=== PATIENT | male | born 1965 | race Caucasian/White ===

== ENCOUNTER 2016-12-15 02:05 | Emergency (ER) | payer MEDICAID ==
--- NOTE | 2016-12-15 02:24 | ED PDOC ---
Arrival/HPI - General Historian: Patient - History of Present Illness Time/Duration: 24 hours Symptom Onset: Sudden Symptom Course: Intermittent, Collicky Quality: Stabbing Severity Level: Moderate Activities at Onset: Rest Context: Home - General Chief Complaint: Back Pain Time Seen by Provider: 12/15/16 02:24 - History of Present Illness Narrative History of Present Illness (Text): 12/15/16 02:37 51yo M with PMHx including DM, HTN here for evaluation of right sided flank pain. Pain described as intermittent, colicky, worse with movement, located in the right side of the abd and radiates to the right back. States that the pain started about 30 hours ago, he has been taking Ibuprofen 800mg with mild relief. Does report some dysuria. No frequency. Also reports some mild nausea which started today. Denies any vomiting. States that he ate a regular meal about 5 hours ago, no change appreciated with abd pain after the meal. Denies F/ C. No CP/SOB. No headaches. Denies similar symptoms in the past. PMHx: DM, HTN, HLD PSHx: Denies Social Hx: Current 1ppd smoker. Denies ETOH use. Denies illicit drugs Allergy: PCN (Kevin Arceo) Past Medical History - Provider Review Nursing Documentation Reviewed: Yes Family/Social History - Physician Review Nursing Documentation Reviewed: Yes Family/Social History: Unknown Family HX Smoking Status: Heavy Smoker > 10 Cigarettes Daily Hx Alcohol Use: No Hx Substance Use: No Allergies/Home Meds Allergies/Adverse Reactions: Allergies penicillamine Allergy (Verified 12/15/16 02:21) ITCHING Penicillins Allergy (Verified 12/15/16 02:21) ITCHING Home Medications: Home Meds Medication Instructions Recorded Confirmed Atorvastatin [Lipitor] 40 mg PO DAILY 12/15/16 12/15/16 Lisinopril/Hydrochlorothiazide 1 each PO DAILY 12/15/16 12/15/16 [Lisinopril-Hctz 10-12.5 mg Tab] Metformin HCl [Glucophage] 500 mg PO BID 12/15/16 12/15/16 Metoprolol Succinate [Toprol XL] 50 mg PO DAILY 12/15/16 12/15/16 Ranitidine HCl [Zantac 300] 300 mg PO BID 12/15/16 12/15/16 Review of Systems - Review of Systems Constitutional: absent: Fatigue, Weight Change, Fevers Eyes: Normal ENT: Normal Respiratory: absent: SOB, Cough Cardiovascular: absent: Chest Pain, Edema, Calf Pain, REYES, Orthopnea Gastrointestinal: Abdominal Pain, Nausea. absent: Constipation, Diarrhea, Vomiting Genitourinary Male: Dysuria. absent: Frequency, Hematuria Musculoskeletal: Back Pain Neurological: absent: Headache, Dizziness Endocrine: absent: Diaphoresis Hemo/Lymphatic: absent: Adenopathy Psychiatric: absent: Anxiety, Depression Physical Exam Vital Signs Reviewed: Yes Temperature: Afebrile Blood Pressure: Hypertensive Pulse: Regular Respiratory Rate: Normal Appearance: Positive for: Non-Toxic, Uncomfortable Pain Distress: Moderate Mental Status: Positive for: Alert and Oriented X 3 - Systems Exam Head: Present: Atraumatic, Normocephalic Extroacular Muscles: Present: EOMI Conjunctiva: Present: Normal Mouth: Present: Moist Mucous Membranes Neck: Present: Normal Range of Motion. No: JVD Respiratory/Chest: Present: Clear to Auscultation, Good Air Exchange. No: Respiratory Distress, Accessory Muscle Use, Wheezes Cardiovascular: Present: Regular Rate and Rhythm, Normal S1, S2. No: Murmurs Abdomen: Present: Tenderness (Right sided abdomen tenderness to palpation). No : Distention, Peritoneal Signs, Rebound, Guarding Back: Present: CVA Tenderness (right sided CVA tenderness) Upper Extremity: Present: Normal Inspection, Normal ROM, NORMAL PULSES. No: Edema Lower Extremity: Present: Normal Inspection, NORMAL PULSES, Normal ROM. No: Edema, CALF TENDERNESS Neurological: Present: GCS=15 Skin: Present: Warm, Dry, Normal Color Psychiatric: Present: Alert, Oriented x 3 Vital Signs Temp Pulse Resp BP Pulse Ox 12/15/16 02:21 98.4 F 66 18 153/80 H 98 Medical Decision Making ED Course and Treatment: In agreement with resident note, which includes further HPI details. Patient was seen and evaluated with resident, came up with plan and treatment together. (Dion Farrell) 12/15/16 02:52 51yo M with Right Flank pain - CBC - CMP - Mg - Phos - UA - IVF - Toradol - Zofran - CT Abd/pelvis - Reassess and dispo 12/15/16 03:30 On reevaluation, pain is improved. Nausea is improved CT - right proximal ureter calculus approx 7cm from right renal pelvis. Size is approx 5mm x 6mm x 4mm stone. Mild right hydronephrosis. Creatinine - 1.6 Mild hyperphosphatemia noted. 5.1. Discussed findings with patient. Patient would like to try conservative medical treatment and requesting discharge. He states that he will follow up with his doctor and Urology as out-patient. Patient instructed to return to the ER with worsening symptoms. Flomax, Cipro and Percocets prescribed. (Kevin Arceo) - Lab Interpretations Lab Results: 12/15/16 02:35 12/15/16 02:35 Lab Results 12/15/16 02:35: Sodium 139, Potassium 4.1, Chloride 104, Carbon Dioxide 25, Anion Gap 14, BUN 17, Creatinine 1.6 H, Est GFR ( Amer) 55, Est GFR (Non- Af Amer) 46, Random Glucose 84, Calcium 9.3, Phosphorus 5.1 H, Magnesium 1.9, Total Bilirubin 0.9, AST 23, ALT 35, Alkaline Phosphatase 77, Total Protein 7.5 , Albumin 4.4, Globulin 3.1, Albumin/Globulin Ratio 1.4 12/15/16 02:35: WBC 10.9, RBC 5.00, Hgb 14.4, Hct 43.5, MCV 87.0, MCH 28.8, MCHC 33.1, RDW 15.0 H, Plt Count 221, MPV 10.4, Gran % 59.8, Lymph % (Auto) 28.0 , Luce % (Auto) 9.8 H, Eos % (Auto) 2.2, Baso % (Auto) 0.2, Gran # 6.51 H, Lymph # 3.1, Luce # 1.1 H, Eos # 0.2, Baso # 0.02 - RAD Interpretation Radiology Orders: 12/15/16 02:34 ABD & PELVIS W/O PO OR IV CONT [CT] Stat - Medication Orders Current Medication Orders: Discontinued Medications Sodium Chloride (Sodium Chloride 0.9%) 1,000 mls @ 999 mls/hr IV .Q1H1M STA Stop: 12/15/16 03:36 Last Admin: 12/15/16 02:52 Dose: 999 mls/hr Ketorolac Tromethamine (Toradol) 30 mg IVP STAT STA Stop: 12/15/16 02:36 Last Admin: 12/15/16 02:51 Dose: 30 mg Ondansetron HCl (Zofran Inj) 4 mg IVP STAT STA Stop: 12/15/16 02:37 Last Admin: 12/15/16 02:52 Dose: 4 mg - PA / LIGHTING DIRECTOR / Resident Statement / has reviewed & agrees with the documentation as recorded. / has examined the patient and agrees with the treatment plan. Disposition/Present on Arrival - Present on Arrival Any Indicators Present on Arrival: No History of DVT/PE: No History of Uncontrolled Diabetes: No Urinary Catheter: No History of Decub. Ulcer: No - Disposition Have Diagnosis and Disposition been Completed?: Yes Disposition Time: 03:57 Patient Plan: Discharge - Disposition Diagnosis: Urolithiasis Disposition: HOME/ ROUTINE Condition: STABLE Discharge Instructions (ExitCare): Kidney Stones (ED) Additional Instructions: 1. Follow up with your Primary Care Physician within 1-2 days 2. Follow up with Urology, call for appointment 3. Use pain meds as prescribed as needed sparingly 4. Take Tamsulosin as prescribed 5. Use urine strainer 6. Return to the ER with any worsening or concerning symptoms Prescriptions: Ciprofloxacin [Cipro] 250 mg PO BID #10 tab oxyCODONE/Acetaminophen [Percocet 5/325 mg Tab] 1 ea PO QID PRN #8 tab PRN Reason: Pain, Moderate (4-7) Tamsulosin [Flomax] 0.4 mg PO DAILY #7 cap Referrals: Joel Quiñones MD [Staff Provider] - Follow up with primary Forms: WORK NOTE
[2016-12-15 02:26] VITALS: RESP 18; TEMP 98.4
[2016-12-15 02:52] LABS: BASO # 0.02 K/mm3 (0.0-2.0); BASO % 0.2 % (0.0-3.0); EOS # 0.2 (0.0-0.7); EOS % 2.2 % (1.5-5.0); GRAN # 6.51 (1.4-6.5); GRAN % 59.8 % (50.0-68.0); HEMATOCRIT 43.5 % (42.0-52.0); LYMPH # 3.1 (1.2-3.4); MEAN CORPUSCULAR HEMOGLOBIN 28.8 pg (25.0-35.0); MEAN CORPUSCULAR HGB CONC 33.1 g/dl (31.0-37.0); MEAN PLATELET VOLUME 10.4 fl (7.0-11.0); MONO # 1.1 (0.1-0.6); MONO % 9.8 % (1.0-6.0); WHITE BLOOD COUNT 10.9 10^3/ul (4.5-11.0)
[2016-12-15] MEDS: Sodium Chloride 0.9% 1,000 ML IV STA (02:52)
[2016-12-15 02:57] LABS: ALB/GLOB RATIO 1.4 (1.1-1.8); BILIRUBIN,TOTAL 0.9 mg/dL (0.2-1.3); CALCIUM 9.3 mg/dL (8.4-10.5); MAGNESIUM 1.9 mg/dL (1.7-2.2); PHOSPHOROUS 5.1 mg/dL (2.5-4.5); POTASSIUM 4.1 mmol/L (3.6-5.0); TOTAL PROTEIN 7.5 g/dL (5.8-8.3)
--- NOTE | 2016-12-15 03:45 | CT ---
EXAM: CT Abdomen and Pelvis Without Intravenous Contrast CLINICAL HISTORY: 51 years old, male; Pain; Abdominal pain; Flank; Right; Additional info: Right flank pain TECHNIQUE: Axial computed tomography images of the abdomen and pelvis without intravenous contrast. All CT scans at this facility use one or more dose reduction techniques, viz.: automated exposure control; ma/kV adjustment per patient size (including targeted exams where dose is matched to indication; i.e. head); or iterative reconstruction technique. Coronal and sagittal reformatted images were created and reviewed. COMPARISON: No relevant prior studies available. FINDINGS: Lower thorax: Minimal atelectasis/scarring. ABDOMEN: Liver: Fatty infiltration. Gallbladder and bile ducts: No calcified stones. No ductal dilation. Pancreas: Unremarkable. No ductal dilation. Spleen: No splenomegaly. Adrenals: No mass. Kidneys and ureters: Mild stranding about RIGHT kidney. No renal calculi. Mild pelvocaliectasis of RIGHT kidney. 0.5 x 0.6 x 0.4 cm calculus within RIGHT proximal ureter. Stomach and bowel: No definite mural thickening. No obstruction. Appendix: Normal caliber. No inflammation. PELVIS: Bladder: Unremarkable. No stones. Reproductive: Enlarged prostate gland. ABDOMEN and PELVIS: Intraperitoneal space: No significant fluid collection. No free air. Bones/joints: No acute fracture. Soft tissues: Tiny umbilical hernia containing fat. Vasculature: Iwua-ry-aarjyadp atherosclerotic disease. No aneurysm. Lymph nodes: Several subcentimeter/few borderline enlarged short axis lymph nodes within paraaortic region. IMPRESSION: 1. RIGHT proximal ureteral calculus with mild hydronephrosis. 2. Prostate enlargement. Followup as clinically warranted. 3. Incidental/non-acute findings are described above.
[2016-12-15 04:30] VITALS: BP 145/79; PULSE 68; O2SAT 99
== END 2016-12-15 04:27 | disposition home or self-care (01) ==
LOC: ED 02:05
DX: N20.9 Urinary calculus, unspecified (principal); I10 Essential (primary) hypertension; E11.9 Type 2 diabetes mellitus without complications
CPT/HCPCS: 74176; 80053; 83735; 84100; 85025; 96361; 96374; 96375; 99284; J1885; J2405; J7040

== ENCOUNTER 2016-12-17 05:57 | Day surgery (SDC) | payer MEDICAID ==
[2016-12-17] MEDS ORDERED: Morphine 4 mg/ml ISec IVP STA ×2 (06:10→08:52)
[2016-12-17] MEDS ORDERED: Sodium Chloride 0.9% 1,000 ML IV STA (06:10)
--- NOTE | 2016-12-17 06:19 | ED PDOC ---
Arrival/HPI - General Chief Complaint: Medical Clearance Time Seen by Provider: 12/17/16 05:59 - History of Present Illness Narrative History of Present Illness (Text): 12/17/16 06:11 51M c/o right flank pain. he was seen here 2 days ago and dx w ureteral stone. saw urologist yesterday. today pain is persistent. percocets are not helping at home. Past Medical History - Cardiac Hx Hypertension: Yes - Pulmonary Hx Respiratory Disorders: No - Neurological Hx Neurological Disorder: No - HEENT Hx HEENT Disorder: No - Renal Hx Renal Disorder: No - Endocrine/Metabolic Hx Diabetes Mellitus Type 2: Yes (borderline) - Hematological/Oncological Hx Blood Disorders: No - Integumentary Hx Dermatological Disorder: No - Musculoskeletal/Rheumatological Hx Musculoskeletal Disorders: No - Gastrointestinal Hx Gastrointestinal Disorders: No - Genitourinary/Gynecological Hx Genitourinary Disorders: No - Psychiatric Hx Psychophysiologic Disorder: No Hx Substance Use: No Family/Social History Family/Social History: Other (nc) Smoking Status: Heavy Smoker > 10 Cigarettes Daily Hx Alcohol Use: No Hx Substance Use: No Allergies/Home Meds Allergies/Adverse Reactions: Allergies penicillamine Allergy (Verified 12/15/16 02:21) ITCHING Penicillins Allergy (Verified 12/15/16 02:21) ITCHING Home Medications: Home Meds Medication Instructions Recorded Confirmed Atorvastatin [Lipitor] 40 mg PO DAILY 12/15/16 12/17/16 Lisinopril/Hydrochlorothiazide 1 each PO DAILY 12/15/16 12/17/16 [Lisinopril-Hctz 10-12.5 mg Tab] Metformin HCl [Glucophage] 500 mg PO BID 12/15/16 12/17/16 Metoprolol Succinate [Toprol XL] 50 mg PO DAILY 12/15/16 12/17/16 Ranitidine HCl [Zantac 300] 300 mg PO BID 12/15/16 12/17/16 Review of Systems - Physician Review All systems were reviewed & negative as marked: Yes - Review of Systems Constitutional: absent: Fatigue, Fevers Respiratory: absent: SOB, Cough Cardiovascular: absent: Chest Pain Gastrointestinal: Constipation. absent: Abdominal Pain, Nausea, Vomiting Genitourinary Male: absent: Dysuria, Frequency, Hematuria, Urinary Output Changes Physical Exam Vital Signs Reviewed: Yes Vital Signs Temp Pulse Resp BP Pulse Ox 12/17/16 06:07 98.1 F 70 17 153/88 H 100 Appearance: Positive for: Well-Appearing, Non-Toxic, Comfortable Pain Distress: None Mental Status: Positive for: Alert and Oriented X 3 - Systems Exam Head: Present: Atraumatic Pupils: Present: PERRL Mouth: Present: Moist Mucous Membranes Neck: Present: Normal Range of Motion Respiratory/Chest: Present: Clear to Auscultation. No: Respiratory Distress, Accessory Muscle Use Cardiovascular: Present: Regular Rate and Rhythm Abdomen: No: Tenderness, Rebound, Guarding Upper Extremity: Present: NORMAL PULSES Neurological: Present: GCS=15 Skin: Present: Warm, Dry Psychiatric: Present: Alert, Oriented x 3 Medical Decision Making ED Course and Treatment: 12/17/16 06:17 lázaro Quiñones- pt to go to OR this afternoon Disposition/Present on Arrival - Present on Arrival Any Indicators Present on Arrival: No History of DVT/PE: No History of Uncontrolled Diabetes: No Urinary Catheter: No History of Decub. Ulcer: No History Surgical Site Infection Following: None - Disposition Have Diagnosis and Disposition been Completed?: Yes Diagnosis: Ureteral stone Disposition: HOSPITALIZED Disposition Time: 06:21 Condition: STABLE Forms: Zumbl (Czech)
[2016-12-17 06:24] LABS: BASO # 0.02 K/mm3 (0.0-2.0); BASO % 0.2 % (0.0-3.0); EOS # 0.3 (0.0-0.7); EOS % 2.4 % (1.5-5.0); GRAN # 6.84 (1.4-6.5); GRAN % 63.3 % (50.0-68.0); HEMATOCRIT 39.4 % (42.0-52.0); LYMPH # 2.5 (1.2-3.4); LYMPH % 22.9 % (22.0-35.0); MEAN CELL VOLUME 86.8 fl (80.0-105.0); MEAN CORPUSCULAR HEMOGLOBIN 28.9 pg (25.0-35.0); MEAN CORPUSCULAR HGB CONC 33.2 g/dl (31.0-37.0); MEAN PLATELET VOLUME 10.5 fl (7.0-11.0); MONO # 1.2 (0.1-0.6); MONO % 11.2 % (1.0-6.0); RED CELL DISTRIBUTION WIDTH 14.6 % (11.5-14.5); WHITE BLOOD COUNT 10.8 10^3/ul (4.5-11.0)
[2016-12-17] MEDS ORDERED: Sodium Chloride 0.9% 1,000 ML IV SCH (06:30)
[2016-12-17 06:42] LABS: ALB/GLOB RATIO 1.4 (1.1-1.8); CALCIUM 9.3 mg/dL (8.4-10.5); POTASSIUM 4.5 mmol/L (3.6-5.0)
[2016-12-17 07:45] LABS: URINE BILIRUBIN NEGATIVE (NEGATIVE); URINE BLOOD TRACE-INTACT (NEGATIVE); URINE GLUCOSE (UA) NEGATIVE (NEGATIVE); URINE KETONE NEGATIVE (NEGATIVE); URINE LEUKOCYTE ESTERASE NEGATIVE Leu/uL (NEGATIVE); URINE PROTEIN NEGATIVE mg/dL (<30 mg/dL); URINE UROBILINOGEN 0.2 E.U./dL (<1 E.U./dL)
[2016-12-17 08:10] LABS: URINE APPEARANCE CLEAR (CLEAR); URINE COLOR YELLOW (YELLOW)
[2016-12-17 08:12] LABS: URINE BACTERIA OCC (NEG); URINE RBC 0 - 2 /hpf (0-2)
--- NOTE | 2016-12-17 09:53 | RAD ---
HISTORY: pre-op COMPARISON: No prior. FINDINGS: LUNGS: No active pulmonary disease. PLEURA: No significant pleural effusion identified, no pneumothorax apparent. CARDIOVASCULAR: Normal. OSSEOUS STRUCTURES: No significant abnormalities. VISUALIZED UPPER ABDOMEN: Normal. OTHER FINDINGS: None. IMPRESSION: No active disease.
[2016-12-17 11:10] VITALS: RESP 20
[2016-12-17] MEDS ORDERED: Midazolam 2 MG/2 ML VIAL ONE (13:32)
[2016-12-17] MEDS ORDERED: cefTRIAXone (Rocephin) 1 gm Inj ONE (13:39)
[2016-12-17] MEDS ORDERED: Iohexol 240 (50 ml) ONE (13:42)
[2016-12-17] MEDS ORDERED: HYDROmorphone 0.5 mg/0.5 ml ISec IVP PRN (14:21)
[2016-12-17] MEDS ORDERED: Lactated Ringer's 1,000 ML IV SCH (14:21)
[2016-12-17 15:29] VITALS: TEMP 99.4; O2SAT 96
--- NOTE | 2016-12-17 15:41 | CARD ---
APPROVED REPORT EKG Measurement Heart [id number] CO [id number] [id number] <Conclusion> Normal sinus rhythm Normal ECG
--- NOTE | 2016-12-17 15:55 | RAD ---
PROCEDURE: Retrograde pyelogram HISTORY: RT KIDNEY STONE, NEPHROURETERAL STENT PLACEMENT COMPARISON: TECHNIQUE: Fluoroscopy was provided in the operating room. 106 seconds of fluoro time. Fourteen images submitted FINDINGS: The study shows opacification the right renal collecting system and placement of a right ureteral stent IMPRESSION: As above
[2016-12-17 15:57] VITALS: BP 153/83; PULSE 89
--- NOTE | 2016-12-17 20:17 | OP ---
PROCEDURE DATE: 12/17/2016 PREOPERATIVE DIAGNOSIS: Renal colic, right ureteral stone. POSTOPERATIVE DIAGNOSIS: Renal colic, right ureteral stone. PROCEDURES: Cystoscopy, right retrograde pyelogram, insertion of a right ureteral stent. SURGEON: Cooper Plascencia MD TYPE OF ANESTHESIA: General. SPECIMEN: None. DRAINS: A right 5-Vincentian 22 to 32 multi length stent. COMPLICATIONS: None. OPERATIVE FINDINGS: After informed consent was obtained, the patient was taken to the operating room, placed on operating table and anesthesia was administered. The patient was then placed in dorsal lithotomy position and prepped and draped in the usual sterile fashion. He had received intravenous antibiotics prior to start of the procedure. A 21-Vincentian cystoscope was placed in the patient's urethra and advanced proximally under vision until the bladder was entered. A full survey inspection of bladder was then performed which revealed no stones, tumors or foreign bodies of the bladder. Both ureteral orifices were visualized and appeared within normal limits. At this point, a 5-Vincentian Pollack catheter was introduced through the cystoscope and guided into the right ureteral orifice. When inside the orifice, a right retrograde pyelogram was performed by instilling contrast through the Pollack catheter in the ureter doing real-time fluoroscopy. The lower end of the ureter appeared within normal calibers. In the upper ureter just below what appeared to be the UPJ, there appeared to be a filling defect which is consistent with the previously noted stone on CT. It appeared at the top of the L4 vertebral body. At this point, contrast was able to be instilled around the filling defect and into the kidney. There was some mild fullness of the collecting system with some mild caliectasis. At this point, a Sensor wire was obtained. The Sensor wire was passed through the Pollack catheter and up the ureter under fluoroscopic guidance. The wire was noted to be able to be advanced around the obstructive stone and advanced up into the kidney where it was coiled in the upper collecting system. At this point, a 6-Vincentian x 28 stent was obtained, it was passed over the wire through the cystoscope and into the right ureter. The stent was advanced proximally under direct fluoroscopic guidance. The stent could not be advanced beyond the obstructing stone. It was coiling; at this point, multiple attempts were made to bypass the stone, however, these were unsuccessful. At this point the stent was removed and a 5-Vincentian multi length stent was obtained. The 5-Vincentian multi length stent was passed over the wire and into the right ureter. It was advanced up the ureter under fluoroscopic and direct guidance. The 5-Vincentian stent was able to be passed beyond the obstructing stone and advanced up into the upper collecting system. At this point, the guidewire was removed. A coil was seen in the kidney on fluoroscopy, a coil was seen on bladder cystoscopy. At this point, the procedure was completed, the bladder was drained, the cystoscope was removed. The patient tolerated the procedure well. He was taken to the recovery room in awake and stable condition. Cooper Plascencia MD
== END 2016-12-17 16:15 | disposition home or self-care (01) ==
LOC: ED 05:57 → SDS 08:52
PROVIDERS: ATTEND Urology
DX: N20.2 Calculus of kidney with calculus of ureter (principal); Z88.0 Allergy status to penicillin; Z01.818 Encounter for other preprocedural examination
CPT/HCPCS: 52332; 71010; 74420; 80053; 81001; 82948; 85025; 93005; 96361; 96374; 96376; 99285; J0696; J1170; J2250; J2270; J2405; J3010; J7040; J7120; Q9966

== ENCOUNTER 2017-03-21 06:59 | Day surgery (SDC) | payer MEDICAID ==
[2017-03-16 15:55] VITALS: BMI 25.4
[2017-03-21] MEDS ORDERED: Midazolam 2 MG/2 ML VIAL ONE ×2 (07:16→09:27)
[2017-03-21] MEDS ORDERED: Lidocaine 2% Inj (20ml) ONE (07:16)
[2017-03-21] MEDS ORDERED: Iodixanol 320 MG/ML 200 ML BOTTLE IV ONE (07:17)
[2017-03-21] MEDS ORDERED: Nitroglycerin 50mg in D5W 50 MG/250 ML BOTTLE IV ONE (07:17)
[2017-03-21 07:29] LABS: BASO # 0.02 K/mm3 (0.0-2.0); BASO % 0.2 % (0.0-3.0); EOS # 0.5 (0.0-0.7); EOS % 4.6 % (1.5-5.0); GRAN # 5.42 (1.4-6.5); HEMATOCRIT 44.6 % (42.0-52.0); LYMPH # 3.8 (1.2-3.4); LYMPH % 36.4 % (22.0-35.0); MEAN CELL VOLUME 86.3 fl (80.0-105.0); MEAN CORPUSCULAR HEMOGLOBIN 28.6 pg (25.0-35.0); MEAN CORPUSCULAR HGB CONC 33.2 g/dl (31.0-37.0); MEAN PLATELET VOLUME 10.1 fl (7.0-11.0); MONO # 0.7 (0.1-0.6); MONO % 6.8 % (1.0-6.0); RED CELL DISTRIBUTION WIDTH 15.3 % (11.5-14.5); WHITE BLOOD COUNT 10.4 10^3/ul (4.5-11.0)
[2017-03-21 07:37] LABS: INR 1.04 (0.93-1.08); PARTIAL THROMBOPLASTIN TIME 29.8 Seconds (25.1-36.5)
[2017-03-21 08:07] LABS: CALCIUM 9.6 mg/dL (8.4-10.5); CHOLESTEROL 239 mg/dL (130-200); GFR AFRICAN-AMERICAN > 60; GLUCOSE,RANDOM 97 mg/dL (70-110)
[2017-03-21 08:15] LABS: BLOOD UREA NITROGEN 17 mg/dL (7-21); CARBON DIOXIDE 24 mmol/L (21-33); CHLORIDE 106 mmol/L (98-107); SODIUM 140 mmol/L (132-148)
[2017-03-21 08:21] VITALS: O2SAT 98
--- NOTE | 2017-03-21 08:28 | HP ---
REASON FOR ADMISSION: Left heart catheterization, possible angioplasty. 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 The patient underwent stress test that showed inferior wall ischemia and ejection fraction of 60%. The patient is scheduled for elective cardiac cath, possible angioplasty. PAST MEDICAL HISTORY: Significant for diabetes, hypertension, hyperlipidemia, and obesity. SOCIAL HISTORY: Active tobacco abuse. Denies any history of alcohol abuse. CURRENT MEDICATION: The patient is taking at home lisinopril 10 mg, hydrochlorothiazide 12.5 mg daily, ibuprofen, atorvastatin, Flomax 0.4 mg daily, Zantac 300 mg daily, metoprolol succinate 50 mg daily, and metformin 5 mg twice a day. CARDIAC WORKUP: Previous cardiac workup as follows: The patient has a stress test on 08/02/[address] Hopkins that shows inferior wall ischemia and ejection fraction of 60%. The patient had echo done in [facility] dated 08/02/[address] Hopkins and shows grossly normal study. Ejection fraction is reported as 65%. No significant mitral regurgitation and significant tricuspid regurgitation noted. A stress test as mentioned on 08/02/[address] Hopkins read as medium reversible perfusion abnormality apical; and inferior wall consistent with ischemia. PHYSICAL EXAMINATION: VITAL SIGNS: Height of the patient is 6 feet 2 inches, weight of the patient is 198 pounds, body mass index 25.8 kg/m2. Heart rate 60 and blood pressure 100/60. HEENT: PERRLA, intact. NECK: Supple. No carotid bruits or thyromegaly. CHEST: Clear to auscultation. HEART: S1 and S2 regular. ABDOMEN: Soft. EXTREMITIES: Clubbing and cyanosis negative. LABORATORY DATA: Blood workup pending. IMPRESSION AND PLAN: Abnormal stress test, chest pain, dyspnea on exertion, active tobacco abuse, hypertension, hyperlipidemia, diabetes, and multivessel coronary artery disease with abnormal stress test. Suggest cardiac catheterization. Further recommendation after cardiac catheterization. We will load with aspirin and Plavix. risks, benefits, and alternatives discussed with the patient. We will get a basic blood workup. Once the blood work is available, we will proceed with cardiac catheterization. Further recommendation after cardiac catheterization. We will follow with you. Thank you Dr. Cummings for providing us the opportunity in taking care of the patient, Beulah Napierayed. Ronald Cat MD IVETH
[2017-03-21] MEDS ORDERED: Eptifibatide 20 mg/10mL Inj IVP ONE (09:18)
[2017-03-21] MEDS ORDERED: Sodium Chloride 0.9% 1,000 ML IV SCH (11:00)
[2017-03-21] MEDS: Insulin Reg-LOW-Coverage SC SCH ×2 (11:46→17:52)
--- NOTE | 2017-03-21 12:41 | CARD ---
APPROVED REPORT EKG Measurement Heart [id number] [id number] <Conclusion> Normal sinus rhythm Normal ECG
--- NOTE | 2017-03-21 12:44 | CARD ---
APPROVED REPORT EKG Measurement Heart [id number] [place] 134P56 [id number] <Conclusion> Normal sinus rhythm Normal ECG
[2017-03-21 13:58] LABS: BASO # 0.02 K/mm3 (0.0-2.0); BASO % 0.2 % (0.0-3.0); EOS # 0.4 (0.0-0.7); EOS % 4.3 % (1.5-5.0); GRAN # 5.55 (1.4-6.5); GRAN % 57.1 % (50.0-68.0); HEMATOCRIT 40.8 % (42.0-52.0); LYMPH # 3.2 (1.2-3.4); LYMPH % 32.9 % (22.0-35.0); MEAN CELL VOLUME 85.5 fl (80.0-105.0); MEAN CORPUSCULAR HEMOGLOBIN 28.3 pg (25.0-35.0); MEAN CORPUSCULAR HGB CONC 33.1 g/dl (31.0-37.0); MEAN PLATELET VOLUME 9.7 fl (7.0-11.0); MONO # 0.5 (0.1-0.6); MONO % 5.5 % (1.0-6.0); RED CELL DISTRIBUTION WIDTH 15.3 % (11.5-14.5); WHITE BLOOD COUNT 9.7 10^3/ul (4.5-11.0)
[2017-03-21 14:04] LABS: BLOOD UREA NITROGEN 16 mg/dL (7-21); CALCIUM 8.9 mg/dL (8.4-10.5); CARBON DIOXIDE 24 mmol/L (21-33); CHLORIDE 104 mmol/L (98-107); GFR AFRICAN-AMERICAN > 60; GLUCOSE,RANDOM 113 mg/dL (70-110); POTASSIUM 3.7 mmol/L (3.6-5.0); SODIUM 137 mmol/L (132-148)
[2017-03-21] MEDS ORDERED: Bacitracin 500 Units/gm Oint Foilpak UD ONE (15:29)
--- NOTE | 2017-03-21 16:50 | CARD ---
APPROVED REPORT Procedure(s) performed: Left Heart Catheterization PTCA with Stenting of Mid Cx (STAGE TECHNICIAN) HISTORY The patient is a 51 year-old male with a history of : most recent EF: 60%. (EF Method: RADIONUCLIDE), renal failure without dialysis, diabetes mellitus with oral treatment , hypertension , dyslipidemia , Had abnormal stress test inferior wal ischemia dt.08/02/2016 , chest pain, and REYES reffered for second opnion.. INDICATION The indication(s) include : positive stress test, chest pain, dyspnea. CASE TECHNIQUE The patient was brought electively to the Cardiac Catheterization Laboratory in a fasting state and was prepped and draped in a sterile manner. The left wrist was infiltrated with 2% Lidocaine subcutaneous anesthesia. A sheath was inserted into the left radial artery without difficulty. Coronary angiography was performed using coronary diagnostic catheters. The left coronary system was accessed and visualized with a Diagnostic ,6FR 3.5JL catheter. The right coronary system was accessed and visualized with a Diagnostic ,5FR 4.0 JR catheter. The left ventricle was accessed and visualized with a Pigtail catheter catheter. Left ventricular/Aortic Valve gradient assessed on pullback. Left ventriculogram was performed in DIMAS projection. The patient tolerated the procedure well and there were no complications associated with the procedure. Vessel Analysis The patient's coronary anatomy is left dominant. The left main coronary artery is a large size vessel with diffuse calcification noted throughout this vessel and without significant stenosis. The left main bifurcates to the left anterior descending and circumflex. The left anterior descending artery is a medium size vessel with diffuse calcification noted throughout this vessel and without significant stenosis. The first diagonal branch is a medium size vessel with diffuse calcification noted throughout this vessel and without significant stenosis. The circumflex artery is a large size vessel with diffuse calcification noted throughout this vessel and with significant stenosis. There is a 100% stenosis in the mid segment. The first obtuse marginal branch is a medium size vessel with diffuse calcification noted throughout this vessel and without significant stenosis. The second obtuse marginal branch is a medium size vessel with diffuse calcification noted throughout this vessel and without significant stenosis. The third obtuse marginal branch is a small size vessel with diffuse calcification noted throughout this vessel and without significant stenosis. The left posterior descending artery is a medium size vessel with diffuse calcification noted throughout this vessel and without significant stenosis. The right coronary artery is a small size vessel with diffuse calcification noted throughout this vessel and without significant stenosis. Left Ventricle The left ventricle is normal in size with normal contractility. There was no cardiomyopathy. The left ventricular ejection fraction is estimated to be 55-60%. The left ventricular end diastolic pressure is 14 mmHg. There was no gradient across the aortic valve upon pullback. PCI Technique Lesion Anticoagulation was achieved with Heparin. Percutaneous coronary intervention was performed on the mid circumflex artery segment. The lesion stenosis prior to intervention was 100% with EMILI 0 flow. A XB 3.0 Guide Catheter was used to engage the ostium. A Long ludge, BMW, CrossIt, Choice PT Interventional Guidewire was used to cross the lesion. BALLOON DILATION A Balloon catheter 1.25/10 sprinter was inserted and inflated up to 1`8atm for 20seconds. up sized to 2.5/12 STENT DEPLOYMENT A drug-eluting stent 2.75/22 was inserted and inflated up to shanel for seconds. POST STENT DEPLOYMENT BALLOON DILATION A Balloon catheter 3.0/15 was inserted and inflated up to 14atm for 18seconds. Final angiography reveals 0 % stenosis with EMILI 3 flow. Conclusion Single vessel CAD involving Mid Circumflex, Dominant large vessel (STAGE TECHNICIAN). Preserved LV FX. EF-55-60%, EDP-14 mmof Hg. Successful PTCA with TRUE of Mid CX. Recommendations Smoking Cessation Cardiac Rehabilitation ReferralDaily ASA with Plavix for at least one year Aggressive Medical TherapyCardiac Risk Reduction Program Weight Loss Reduction Program CC; DRS. Cummings/ Kellie.
[2017-03-21 17:54] VITALS: BP 132/64; PULSE 74; RESP 20; TEMP 98.3
[2017-03-22] MEDS ORDERED: Metoprolol Succinate 50 mg XL Tab PO SCH (10:00)
== END 2017-03-21 17:30 | disposition home or self-care (01) ==
LOC: CATH 06:59 → 2RSO 10:56 → CATH 17:30
PROVIDERS: ATTEND Internal Medicine Cardiovascular Disease
DX: I25.10 Atherosclerotic heart disease of native coronary artery without angina pectoris (principal); E11.9 Type 2 diabetes mellitus without complications; E78.5 Hyperlipidemia, unspecified; I10 Essential (primary) hypertension; E66.9 Obesity, unspecified; Z79.84 Long term (current) use of oral hypoglycemic drugs; Z72.0 Tobacco use
CPT/HCPCS: 36415; 80048; 80061; 82948; 85025; 85175; 85610; 85730; 86850; 86900; 93005; 93458; 99152; 99153; C1725 ×2; C1769 ×6; C1874; C1887 ×3; C9600; J1327; J1644 ×2; J2250; J3010; J7030; J7040

== ENCOUNTER 2017-08-24 21:52 | Emergency (ER) | payer MEDICAID ==
[2017-08-24 21:52] VITALS: BMI 25.4
[2017-08-24] MEDS ORDERED: Oxycodone/Acetaminophen 5/325 mg Tab PO STA (22:46)
--- NOTE | 2017-08-25 00:16 | ED PDOC ---
Arrival/HPI - General Chief Complaint: Back Pain Time Seen by Provider: 08/24/17 22:42 Historian: Patient - History of Present Illness Narrative History of Present Illness (Text): 08/24/17 22:45 52 year old male who presents to the Emergency department complaining of lower back pain and buttock pain status post fall. Patient states he tripped and fell down stairs, landing on his butt 4 days prior with minimal pain initially. 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 Patient denies any numbness/tingling/weakness in the extremity, bladder/bowel incontinence, or saddle paresthesia. Patient states he took Tramadol at home for pain with minimal relief. Patient states pain is localized to mid buttocks/crease area. Patient states when he walks he doesnt have any pain, but states it is extremely painful to sit down directly on the buttock. Patient also denies any head trauma, loss of consciousness, headache, dizziness, abdominal pain, chest pain, or any other complaints. Symptom Onset: Gradual Symptom Course: Worsening Activities at Onset: Other (Fall) Context: Tripped Past Medical History - Provider Review Nursing Documentation Reviewed: Yes - Infectious Disease Hx of Infectious Diseases: None - Cardiac Hx Pacemaker: No - Pulmonary Hx Respiratory Disorders: No - Neurological Hx Paralysis: No - HEENT Hx HEENT Disorder: No - Renal Hx Renal Disorder: No - Endocrine/Metabolic Hx Diabetes Mellitus Type 2: Yes (borderline) - Hematological/Oncological Hx Blood Transfusions: No Hx Blood Transfusion Reaction: No - Integumentary Hx Dermatological Disorder: No - Musculoskeletal/Rheumatological Hx Musculoskeletal Disorders: No - Gastrointestinal Hx Gastrointestinal Disorders: No - Genitourinary/Gynecological Hx Genitourinary Disorders: No - Psychiatric Hx Emotional Abuse: No Hx Physical Abuse: No Hx Substance Use: No - Anesthesia Hx Anesthesia Reactions: No Hx Malignant Hyperthermia: No - Suicidal Assessment Feels Threatened In Home Enviroment: No Family/Social History - Physician Review Nursing Documentation Reviewed: Yes Family/Social History: Unknown Family HX Smoking Status: Heavy Smoker > 10 Cigarettes Daily Hx Alcohol Use: No Hx Substance Use: No Allergies/Home Meds Allergies/Adverse Reactions: Allergies penicillamine Allergy (Verified 08/24/17 22:18) ITCHING Penicillins Allergy (Verified 08/24/17 22:18) ITCHING Home Medications: Home Meds Medication Instructions Recorded Confirmed Atorvastatin [Lipitor] 40 mg PO DAILY 12/15/16 08/24/17 Lisinopril/Hydrochlorothiazide 1 each PO DAILY 12/15/16 08/24/17 [Lisinopril-Hctz 10-12.5 mg Tab] Metformin HCl [Glucophage] 500 mg PO BID 12/15/16 08/24/17 Metoprolol Succinate [Toprol XL] 50 mg PO DAILY 12/15/16 08/24/17 Ranitidine HCl [Zantac 300] 300 mg PO BID 12/15/16 08/24/17 Review of Systems - Physician Review All systems were reviewed & negative as marked: Yes - Review of Systems Constitutional: absent: Fatigue, Fevers Respiratory: Normal. absent: SOB, Cough Cardiovascular: Normal. absent: Chest Pain Gastrointestinal: Normal. absent: Abdominal Pain, Diarrhea, Nausea, Vomiting Genitourinary Male: Normal. absent: Dysuria, Frequency, Hematuria, Urinary Output Changes Musculoskeletal: Back Pain. absent: Neck Pain Skin: Normal. absent: Rash, Pruritis Neurological: Normal. absent: Headache, Dizziness Physical Exam Vital Signs Reviewed: Yes Vital Signs Temp Pulse Resp BP Pulse Ox 08/25/17 00:49 98.3 F 77 18 112/56 L 96 08/24/17 22:15 98.8 F 93 H 18 103/60 98 Temperature: Afebrile Blood Pressure: Normal Pulse: Regular Respiratory Rate: Normal Appearance: Positive for: Well-Appearing, Non-Toxic, Comfortable Pain Distress: None Mental Status: Positive for: Alert and Oriented X 3 - Systems Exam Head: Present: Atraumatic, Normocephalic Pupils: Present: PERRL Extroacular Muscles: Present: EOMI Conjunctiva: Present: Normal Mouth: Present: Moist Mucous Membranes Neck: Present: Normal Range of Motion. No: Meningeal Signs, MIDLINE TENDERNESS , Paraspinal Tenderness Respiratory/Chest: Present: Clear to Auscultation, Good Air Exchange. No: Respiratory Distress, Accessory Muscle Use Cardiovascular: Present: Regular Rate and Rhythm, Normal S1, S2. No: Murmurs Rectal: Present: Normal Rectal Tone, Other (GAVIN Hare present as bowl attendant) . No: Gross Blood, Hemorrhoids Back: Present: Other (Tenderness noted to sacral/coccyx region, no erythema, no edema, no ecchymosis). No: CVA Tenderness, Midline Tenderness (No midline bony tenderness), Paraspinal Tenderness, Pain with Leg Raise (Negative straight leg raise) Upper Extremity: Present: Normal Inspection. No: Cyanosis, Edema Lower Extremity: Present: Normal Inspection, NORMAL PULSES, Normal ROM, Temperature Abnormalties, Neurovascularly Intact, Capillary Refill < 2 s, Other (Full ROM in bilateral lower extremity, muscle strength 5/5 bilaterally, sensation and distal pulses intact). No: Edema, CALF TENDERNESS, Cyanosis, Tenderness, Swelling, Erythema, Deformity Neurological: Present: GCS=15, Speech Normal, Motor Func Grossly Intact, Normal Sensory Function Skin: Present: Warm, Dry, Normal Color. No: Rashes Psychiatric: Present: Alert, Oriented x 3, Normal Insight, Normal Concentration Medical Decision Making ED Course and Treatment: Impression: 52 year old male complaining of lower back pain/buttock pain s/p fall 4 days prior Plan: -- CT Lumbar Spine w/o contrast: FINDINGS: Vertebrae: No acute fracture. Probable bone island. Sacrum/coccyx: Minimally displaced fracture distal sacrum. Discs/spinal canal/neural foramina: Minimal spondylosis. No significant spinal stenosis. Soft tissues: Unremarkable. Vasculature: Mild to moderate atherosclerotic disease of aorta and iliac arteries. Minimal ectasia infrarenal aorta, up to 2.2 cm. Reproductive: Mildly enlarged prostate. IMPRESSION: 1. Sacral fracture. 2. Prostate enlargement. Followup as clinically warranted. 3. Incidental/non-acute findings are described above. -- CT Pelvis w/o contrast: FINDINGS: Bones/joints: Minimally displaced fracture distal sacrum. No dislocation. Soft tissues: Unremarkable. Vasculature: Mild to moderate atherosclerotic disease of aorta and iliac arteries. Reproductive: Mildly enlarged prostate. IMPRESSION: 1. Sacral fracture. 2. Prostate enlargement. Followup as clinically warranted. 3. Incidental/non-acute findings are described above. -- Percocet -- Reassess and disposition Progress Notes: 08/25/17 01:50 pt non toxic well appearing; no distress. feeling better with medications. urinating without any difficulty. pt with normal bowel movement today. ambulates with steady gait. neurovasc intact. I discussed all results in depth with the patient. I reviewed CT results with patient. Advised the patient of sacral fracture as well as prostate enlargement. Advised follow-up with primary care physician. I advised follow-up with the neurosurgeon within the next 2 days. Advised immediate return if symptoms worsen persist or if new concerning symptoms develop Patient verbalizes understanding of discharge instructions and need for immediate followup. all aspects of this case were discussed the attending of record. Impression: Sacral fracture, enlarged prostate Motrin every 6 hours as needed for the pain Continue tramadol every 6 hours as needed moderate to severe pain; may cause drowsiness follow up with the neurosurgeon within the next 2 days. follow up with the primary care physician within the next 2 days. return immediately if symptoms worsen,persist or if new symptoms develop. Reassessment Condition: Re-examined, Improved - RAD Interpretation Radiology Orders: 08/24/17 22:45 PELVIS W/O PO OR IV CONTRAST [CT] Stat 08/24/17 22:46 LUMBAR SPINE W/O CONTRAST [CT] Stat - Medication Orders Current Medication Orders: Discontinued Medications Oxycodone/Acetaminophen (Percocet 5/325 Mg Tab) 1 tab PO STAT STA Stop: 08/24/17 22:47 Last Admin: 08/24/17 22:56 Dose: 1 tab MAR Pain Assessment Document 08/24/17 22:56 NEYDA (Rec: 08/24/17 22:56 NEYDA [id number]) Pain Reassessment Is this a pain reassessment? Yes Sleep Is patient sleeping during reassessment? No Presence of Pain Presence of Pain Yes Location Upper or Lower Lower Pain Location Body Site Back Description Description Intermittent Intensity of Pain at present 5 Pain Behavior Facial Grimacing Aggravating Factors Changing Position - Scribe Statement The provider has reviewed the documentation as recorded by the Jayshree Mcdonald Provider Scribe Attestation: All medical record entries made by the Jayshree were at my direction and personally dictated by me. I have reviewed the chart and agree that the record accurately reflects my personal performance of the history, physical exam, medical decision making, and the department course for this patient. I have also personally directed, reviewed, and agree with the discharge instructions and disposition. Disposition/Present on Arrival - Present on Arrival Any Indicators Present on Arrival: No History of DVT/PE: No History of Uncontrolled Diabetes: No Urinary Catheter: No History of Decub. Ulcer: No History Surgical Site Infection Following: None - Disposition Have Diagnosis and Disposition been Completed?: Yes Diagnosis: Sacral fracture, Enlarged prostate Disposition: HOME/ ROUTINE Disposition Time: 01:57 Patient Plan: Discharge Patient Problems: Current Active Problems Problem Status Onset Enlarged prostate Acute Sacral fracture Acute Condition: GOOD Additional Instructions: Continue tramadol every 6 hours as needed moderate to severe pain; may cause drowsiness follow up with the neurosurgeon within the next 2 days. follow up with the primary care physician within the next 2 days. return immediately if symptoms worsen,persist or if new symptoms develop. Referrals: Conor Cummings MD [Staff Provider] - Follow up with primary Chase Troncoso MD [Staff Provider] - Follow up with primary Forms: [facility] (Cuban), WORK NOTE
--- NOTE | 2017-08-25 01:24 | CT ---
EXAM: CT Lumbar Spine Without Intravenous Contrast CLINICAL HISTORY: 52 years old, male; Pain; Low back pain; Additional info: Fall back pain TECHNIQUE: Axial computed tomography images of the lumbar spine without intravenous contrast. All CT scans at this facility use one or more dose reduction techniques, viz.: automated exposure control; ma/kV adjustment per patient size (including targeted exams where dose is matched to indication; i.e. head); or iterative reconstruction technique. Coronal and sagittal reformatted images were created and reviewed. COMPARISON: No relevant prior studies available. FINDINGS: Vertebrae: No acute fracture. Probable bone island. Sacrum/coccyx: Minimally displaced fracture distal sacrum. Discs/spinal canal/neural foramina: Minimal spondylosis. No significant spinal stenosis. Soft tissues: Unremarkable. Vasculature: Mild to moderate atherosclerotic disease of aorta and iliac arteries. Minimal ectasia infrarenal aorta, up to 2.2 cm. Reproductive: Mildly enlarged prostate. IMPRESSION: 1. Sacral fracture. 2. Prostate enlargement. Followup as clinically warranted. 3. Incidental/non-acute findings are described above.
--- NOTE | 2017-08-25 01:27 | CT ---
EXAM: CT Pelvis Without Intravenous Contrast CLINICAL HISTORY: 52 years old, male; Pain; Pelvic pain; Additional info: Fall down stairs, pain to sacrum/coccyx. TECHNIQUE: Axial computed tomography images of the pelvis without intravenous contrast. All CT scans at this facility use one or more dose reduction techniques, viz.: automated exposure control; ma/kV adjustment per patient size (including targeted exams where dose is matched to indication; i.e. head); or iterative reconstruction technique. Coronal and sagittal reformatted images were created and reviewed. COMPARISON: CT - ABD PELVIS W/O PO OR IV CONT 2016-12-15 02:56 FINDINGS: Bones/joints: Minimally displaced fracture distal sacrum. No dislocation. Soft tissues: Unremarkable. Vasculature: Mild to moderate atherosclerotic disease of aorta and iliac arteries. Reproductive: Mildly enlarged prostate. IMPRESSION: 1. Sacral fracture. 2. Prostate enlargement. Followup as clinically warranted. 3. Incidental/non-acute findings are described above.
[2017-08-25 02:08] VITALS: BP 112/67; PULSE 80; RESP 16; TEMP 98.7; O2SAT 99
== END 2017-08-25 01:59 | disposition home or self-care (01) ==
LOC: ED 21:52
DX: S32.10XA Unspecified fracture of sacrum, initial encounter for closed fracture (principal); W10.9XXA Fall (on) (from) unspecified stairs and steps, initial encounter; Y92.9 Unspecified place or not applicable